=== PATIENT | male | born 1930 | race Two or more races ===

== ENCOUNTER 2019-05-14 12:29 | Inpatient (IN) | payer MEDICARE, MEDICAID ==
[~2019-05-14] VITALS: Ht 154.9 cm; Wt 30.6 kg
[2019-05-14 14:29] LABS: Albumin 2.6 g/dL (3.4-5.0); BUN/Creatinine Ratio 30.1; Calcium 8.7 mg/dL (8.5-10.1); Potassium 4.4 mmol/L (3.5-5.1)
[2019-05-14 14:32] LABS: Bilirubin, Total 0.5 mg/dL (0.2-1.0); Total Protein 7.8 g/dL (6.4-8.2)
[2019-05-14 14:58] LABS: Basophils # (auto) 0.1 uL; Basophils % (auto) 0.9 % (0.0-2.0); Eosinophils # (auto) 0.3 uL; Eosinophils % (auto) 5.7 % (0.0-7.0); Hematocrit 39.5 % (41.0-53.0); Hemoglobin 13.1 g/dL (13.5-17.5); Lymphocytes # (auto) 0.6 uL; Lymphocytes % (auto) 9.5 % (10.0-50.0); Mean Corpuscular Hgb Conc. 33.2 g/dL (32.0-36.0); Mean Corpuscular Volume 93.4 fL (80.0-100.0); Monocytes # (auto) 0.5 uL; Monocytes % (auto) 7.9 % (0.0-12.0); Neutrophils # (auto) 4.6 uL; Nucleated Red Blood Cells % 0.1 %; Platelet Count (auto) 122 10^3/uL (140-450); Red Blood Cells 4.24 10^6/uL (4.5-5.90); Red Cell Distribution Width 18.9 % (11.8-14.3); White Blood Cell 6.1 10^3/uL (4.4-10.8)
[2019-05-14] MEDS ORDERED: ACETAMINOPHEN 325 MG TAB PO PRN (15:00)
[2019-05-14] MEDS ORDERED: ONDANSETRON HCL 4 MG/2 ML VIAL IV PRN (15:00)
[2019-05-14] MEDS ORDERED: HYDROcodone-ACET 5/325MG TAB PO PRN (15:00)
[2019-05-14] MEDS ORDERED: DOCUSATE SOD 100 MG CAP PO PRN (15:00)
[2019-05-14] MEDS ORDERED: MORPHINE SULF INJ 2 MG/ML SYRINGE 1ML IV PRN (15:00)
[2019-05-14] MEDS ORDERED: NITROGLYCERIN 0.4 MG SL TAB SL PRN (15:00)
[2019-05-14] MEDS ORDERED: VALSARTAN 80 MG TAB PO ONE (15:15)
[2019-05-14] MEDS ORDERED: amLODIPine BESYLATE 5 MG TAB PO ONE (15:15)
[2019-05-14] MEDS: VALSARTAN 80 MG TAB GT SCH (15:29)
[2019-05-14] MEDS: amLODIPine BESYLATE 5 MG TAB GT SCH (15:29)
[2019-05-14] MEDS: SOD CHL 0.45% 1,000 ML IV SCH (15:30)
[2019-05-15] MEDS: SOD CHL 0.45% 1,000 ML IV SCH (08:24)
[2019-05-15] MEDS: VALSARTAN 80 MG TAB GT SCH (11:18)
[2019-05-15] MEDS: amLODIPine BESYLATE 5 MG TAB GT SCH (11:18)
--- NOTE | 2019-05-15 13:51 | NUR ---
SWALLOW EVALUATED IN EMERGENCY DEPT. WITH FAMILY PRESENT. PATIENT HAS A FEW LOWER TEETH. PATIENT ABLE TO TOLERATE PUREE DIET TEXTURE WITH THIN LIQUIDS WITH NO OVERT SIGNS OR SYMPTOMS OF ASPIRATION. NURSING NOTIFIED.
--- NOTE | 2019-05-15 23:20 | NUR ---
ADMITTED PATIENT FROM THE ER, AAOX1. ALERT TO SELF ONLY. INTRODUCED MYSELF TO PATIENT. SITTER IS IN THE ROOM. CONFUSED TO PLACE, TIME AND SITUATION. UNABLE TO COMPREHEND. AGARWAL IS INTACT TO URINE BAG. PATIENT HAS A PEG TUBE INTACT. SKIN IS CLEAR. NO SOB NOTED. DENIES ANY PAIN. PATIENT HAS MILD GENERALIZED WEAKNESS. WILL TURN PATIENT EVERY TWO HOURS. ROUTINE ADMISSION DONE. POCS DISCUSSED WITH PATIENT AND UNABLE TO COMPREHEND. SIDE RAILS UP. CALL LIGHT/TABLE IN REACH. KEPT COMFORTABLE.
[2019-05-15 23:30] VITALS: BP 154/79
[2019-05-16] MEDS ORDERED: SODIUM CHLORIDE 0.9% 1,000 ML IV SCH (02:00)
[2019-05-16] MEDS: SOD CHL 0.45% 1,000 ML IV SCH ×2 (02:52→16:57)
[2019-05-16 05:00] VITALS: BP 152/79
--- NOTE | 2019-05-16 06:08 | NUR ---
ON BED, ASLEEP. STABLE. NO DISTRESS NOTED. FOR MORE CARE AND MANAGEMENT.
--- NOTE | 2019-05-16 07:30 | NUR ---
Opening Shift Note Assumed care of patient, awake and oriented x1. No S/S of distress/SOB or pain. Sitter is at bedside and is assisting with 24 hour care. IV is in left forearm 20 gauge asymptomatic, intact, patent, and infusing normal saline TKO. Lindsay catheter is patent and draining clear yellow urine to gravity. Instructed on POC and to call for assist PRN, and patient verbalized understanding to the best of his ability. Will continue to monitor for changes Q1hr and PRN.
[2019-05-16 09:00] VITALS: BP 98/58
[2019-05-16] MEDS: VALSARTAN 80 MG TAB GT SCH (10:00)
[2019-05-16] MEDS: amLODIPine BESYLATE 5 MG TAB GT SCH (10:00)
--- NOTE | 2019-05-16 10:00 | NUR ---
Held 1000 blood pressure medications due to low blood pressure; 98/58 mmHg.
[2019-05-16 12:30] VITALS: BP 105/55
--- NOTE | 2019-05-16 12:30 | NUR ---
Dr. Deo M.D., at bedside. New orders received. Will continue to monitor Q1.
[2019-05-16 16:00] VITALS: BP 95/53
--- NOTE | 2019-05-16 19:10 | NUR ---
Opening Shift Note Assumed care of pt. from day nurse, in bed resting with eyes closed. No S/S of distress or SOB, no pain noted or reported at this time. Respirations are even and unlabored on room air. Bed locked in lowest position, side rails up x 2, call light within reach, sitter at bedside.
[2019-05-16 21:45] VITALS: BP 114/75
[2019-05-17 05:00] VITALS: BP 124/59
--- NOTE | 2019-05-17 07:00 | NUR ---
Opening Shift Note Assumed care of patient, awake, alert, and oriented x2, and sitting up in bed eating breakfast. No S/S of distress/SOB or pain. Sitter is at bedside for 24 hour care. IV is in left forearm 20 gauge asymptomatic, intact, patent, and infusing normal saline at 10 mL/hour. Lindsay catheter patent and draining clear yellow urine to gravity. Bed is locked and in lowest position and call light is within reach. Instructed on POC and to call for assist PRN, and patient verbalized understanding to the best of his ability. Will continue to monitor for changes Q1hr and PRN.
[2019-05-17 07:17] LABS: Basophils # (auto) 0.1 uL; Basophils % (auto) 1.3 % (0.0-2.0); Eosinophils # (auto) 0.3 uL; Eosinophils % (auto) 4.3 % (0.0-7.0); Hematocrit 42.4 % (41.0-53.0); Hemoglobin 14.2 g/dL (13.5-17.5); Lymphocytes % (auto) 14.3 % (10.0-50.0); Mean Corpuscular Hemoglobin 31.3 pg (28.0-32.0); Mean Corpuscular Hgb Conc. 33.5 g/dL (32.0-36.0); Mean Corpuscular Volume 93.5 fL (80.0-100.0); Monocytes # (auto) 0.6 uL; Monocytes % (auto) 7.6 % (0.0-12.0); Neutrophils # (auto) 5.3 uL; Neutrophils % (auto) 72.5 % (37.0-80.0); Platelet Count (auto) 152 10^3/uL (140-450); Red Blood Cells 4.53 10^6/uL (4.5-5.90); Red Cell Distribution Width 18.2 % (11.8-14.3); White Blood Cell 7.3 10^3/uL (4.4-10.8)
[2019-05-17 08:34] VITALS: BP 115/59
--- NOTE | 2019-05-17 09:30 | NUR ---
Dr. Carrero, Neurologist, at bedside. New orders received.
[2019-05-17] MEDS: SOD CHL 0.45% 1,000 ML IV SCH (09:37)
[2019-05-17 09:46] LABS: Albumin 2.7 g/dL (3.4-5.0); BUN/Creatinine Ratio 23.6; Calcium 8.3 mg/dL (8.5-10.1); Potassium 3.9 mmol/L (3.5-5.1)
[2019-05-17 09:54] LABS: Folate (Folic Acid) > 24.00 ng/mL (5.38-24)
[2019-05-17] MEDS: VALSARTAN 80 MG TAB GT SCH (10:00)
[2019-05-17] MEDS: amLODIPine BESYLATE 5 MG TAB GT SCH (10:00)
--- NOTE | 2019-05-17 10:06 | NUR ---
Pt was confused and unable to sign IM.
[2019-05-17 12:42] VITALS: BP 113/65
[2019-05-17 17:32] VITALS: BP 106/58
--- NOTE | 2019-05-17 19:10 | NUR ---
Opening Shift Note Assumed care of patient from Yudy BHAGAT. Pt is awake and alert and oriented x2 to self and place. No S/S of distress/SOB or pain. Safety maintained with bed rails upx2, locked and in lowest position with call castro within reach. Instructed on POC and to call for assist PRN, will continue to monitor for changes Q1hr and PRN. Sitter at bedside.
[2019-05-17 22:00] VITALS: BP 105/56
[2019-05-18] MEDS: SOD CHL 0.45% 1,000 ML IV SCH ×2 (02:17→14:29)
[2019-05-18 05:12] VITALS: BP 122/67
--- NOTE | 2019-05-18 08:00 | NUR ---
PT RESTING IN BED. PT ORIENTED X2. SITTER AT BED SIDE. SIDE RAILS UP X 2 AND BED IN LOWEST LOCKED POSITION. PT REPORTS NO PAIN AT THIS TIME. WILL CONTINUE TO MONITOR.
[2019-05-18 09:00] VITALS: BP 131/72
[2019-05-18] MEDS: amLODIPine BESYLATE 5 MG TAB GT SCH (10:00)
[2019-05-18] MEDS: VALSARTAN 80 MG TAB GT SCH (10:25)
--- NOTE | 2019-05-18 10:39 | NUR ---
PT REFUSED TO WALK WITH PHYSICAL THERAPY. PT DID AMBULATE TO CHAIR AND IS SITTING IN CHAIR NOW, SITTER AT BEDSIDE.
--- NOTE | 2019-05-18 11:41 | NUR ---
Nutrition Assessment Notes please see attached link for complete assessment Est. Needs IBW [id number] kcal (25-30kcal/kgBW), 51-61 gms pro (1.0-1.2 gms/kgBW). Will continue to monitor pertinent labs and reassess nutrient need prn Addendum: 05/18/19 at [address] Amended: Links added.
[2019-05-18] MEDS ORDERED: DOCU100C8 PO (12:34)
[2019-05-18] MEDS ORDERED: VALS1TAB57 GT (12:34)
[2019-05-18] MEDS ORDERED: AML5T GT (12:34)
[2019-05-18] MEDS ORDERED: ACE325T PO (12:34)
--- NOTE | 2019-05-18 12:46 | NUR ---
PT Patient refused to be OOB through a outpatient admitting clerk (VENUS Soto) PT during visit. Addendum: 05/18/19 at 1247 by MINERVA HACKETT PTT Amended: Links added.
[2019-05-18 13:00] VITALS: BP 110/58
--- NOTE | 2019-05-18 14:55 | NUR ---
assessment Patient is a 88 year old male who is confused. Prior to admission patient lived home with his per daughter Lilly. Per Lilly patients PCP is Dr White. Patient has a hospital bed. Per Lilly patient to be discharged to [facility] where he was recently. Per Lilly patient has an advanced directive and she is POA. I informed Lilly patient has a discharge order to return to [facility]. Lilly agreed to SNF transfer. MD order has been sent to [facility]. Carlos Seda patient will be admitted to room 47B and Dr Wesley is the accepting MD. Lilly has been notified and agrees to discharge plan to . Mary BHAGAT has been notified. Addendum: 05/18/19 at 1501 by Rosa Isela CAPUTO Amended: Links added. Addendum: 05/18/19 at 1502 by Rosa Isela CAPUTO [facility] to transport at 5pm today post discharge.
--- NOTE | 2019-05-18 15:41 | NUR ---
SPOKE WITH DR JENNIFER MD SIGNED PT TRANSFER PAPER WORK. CALLED TOBY, PT DAUGHTER, NO ANSWER, LEFT MESSAGE NOTIFYING DAUGHTER PT IS TRANSFERRING TO ROOM 47B AT [facility]. CALL BACK NUMBER ALSO PROVIDED ON MESSAGE. CALLED ANS GAVE REPORT TO LUCI BHAGAT. CALLED BACK AT DR RODRIGUEZ'S REQUEST TO INFORM LUCI BHAGAT PT IS DNR BY DR RODRIGUEZ AND TO CALL DR RODRIGUEZ WHEN PT GETS TO [facility]. LUCI WAS BUSY, MESSAGE LEFT WITH MAGGY, MAGGY REPORTS SHE WILL GIVE MESSAGE TO LUCI. PT IS TO KEEP AGARWAL PER ORDER.
[2019-05-18 15:45] VITALS: BP 110/58
[2019-05-18 17:00] VITALS: BP 123/67
--- NOTE | 2019-05-18 17:25 | NUR ---
re-assessment Patient will be transported by [facility] [phone] at 715pm today post discharge. Lilly srini has been notified. Addendum: 05/18/19 at 1728 by Rosa Isela Harvey SS Amended: Links added.
--- NOTE | 2019-05-18 18:53 | NUR ---
[facility] STILL NOT HERE TO BUYER INTERN PT. ETA WAS 1700. CALLED [facility], [facility] REPORTS THEY WILL BE HERE AT 1930 TO BUYER INTERN PATIENT.
--- NOTE | 2019-05-18 19:40 | NUR ---
Discharge instructions given as ordered by day shift RN. All questions and concerns addressed. Patient verbalized understanding. IV removed by Mary BHAGAT. Lindsay catheter remains in place at discharge. Medication reconciliation form completed and copy in patient's chart. Report given by Mary BHAGAT. Patient transported by [facility] with all personal belongings. No distress noted at time of departure.
== END 2019-05-18 19:40 | DRG 86 ==
LOC: ER 12:29 → TELE 15:09 → TELE-WESTW 05-15 23:18
PROVIDERS: ADMIT Specialist; ATTEND Specialist
DX: S06.5X0A Traumatic subdural hemorrhage without loss of consciousness, initial encounter (principal); E44.0 Moderate protein-calorie malnutrition; Z68.1 Body mass index [BMI] 19.9 or less, adult; D64.9 Anemia, unspecified; M48.02 Spinal stenosis, cervical region; R62.7 Adult failure to thrive; R79.89 Other specified abnormal findings of blood chemistry; Z66 Do not resuscitate; D69.6 Thrombocytopenia, unspecified; R29.6 Repeated falls; W18.39XA Other fall on same level, initial encounter; R26.9 Unspecified abnormalities of gait and mobility; E03.9 Hypothyroidism, unspecified; F02.80 Dementia in other diseases classified elsewhere, unspecified severity, without behavioral disturbance, psychotic disturbance, mood disturbance, and anxiety; I10 Essential (primary) hypertension; G30.9 Alzheimer's disease, unspecified; Y92.129 Unspecified place in nursing home as the place of occurrence of the external cause; Y93.89 Activity, other specified; Y99.8 Other external cause status
CPT/HCPCS: 36415; 70450; 71045; 72125; 80053; 82550; 82607; 82746; 84443; 85025; 92610; 97163; G0378